=== PATIENT | male | born 1980 | race Caucasian/White ===

== ENCOUNTER 2020-10-22 21:47 | Emergency (ER) | payer OTHER ==
[~2020-10-22] VITALS: Ht 177.8 cm; Wt 72.6 kg
[~2020-10-22 21:47] MED LIST: Permethrin60 GM TOP
[2020-10-22] MEDS ORDERED: SUBOXONE 8 MG-1 EACH SL (21:58)
== END 2020-10-22 22:59 | disposition home or self-care (01) ==
LOC: ER 21:47
DX: T15.02XA Foreign body in cornea, left eye, initial encounter (principal); T15.01XA Foreign body in cornea, right eye, initial encounter; F17.210 Nicotine dependence, cigarettes, uncomplicated; Z79.891 Long term (current) use of opiate analgesic
CPT/HCPCS: 65222; 99283-25; A9270

== ENCOUNTER 2020-12-24 03:17 | Emergency (ER) | payer OTHER ==
[~2020-12-24] VITALS: Ht 177.8 cm; Wt 77.1 kg
[~2020-12-24 03:17] MED LIST changes: +SUBOXONE 8 MG-1 EACH SL
[2020-12-24] MEDS ORDERED: Vibramycin100 MG PO (04:39)
== END 2020-12-24 04:55 | disposition home or self-care (01) ==
LOC: ER 03:17
DX: L03.116 Cellulitis of left lower limb (principal); F17.200 Nicotine dependence, unspecified, uncomplicated
CPT/HCPCS: 99283; A9270

== ENCOUNTER 2023-09-22 07:27 | Emergency (ER) | payer OTHER ==
[~2023-09-22] VITALS: Ht 177.8 cm; Wt 72.6 kg
[~2023-09-22 07:27] MED LIST changes: +CEPH500 PO; +IBUP800 PO; +Robaxin750 MG PO; +SULTRIDS PO; +Vibramycin100 MG PO
[2023-09-22] MEDS ORDERED: Bactrim Ds Tab1 EACH PO (10:28)
[2023-09-22 10:52] VITALS: BP 148/87
== END 2023-09-22 10:52 | disposition home or self-care (01) ==
LOC: ER 07:27
DX: L02.511 Cutaneous abscess of right hand (principal); F17.200 Nicotine dependence, unspecified, uncomplicated
CPT/HCPCS: 26010; 73140; 90471; 90714; 90715; 99283-25; A9270

== ENCOUNTER 2024-11-19 00:02 | Emergency (ER) | payer OTHER ==
[~2024-11-19] VITALS: Ht 177.8 cm; Wt 77.1 kg
[~2024-11-19 00:02] MED LIST changes: +Acetaminophen650 M1 PO; +BACTRIM DS TAB1 EAC1 PO; +Bactrim Ds Tab1 EACH PO; +Clindamycin HC150 MG PO; +IBUP600 PO; +LACT PO; +Norco 10-325 T1 EACH PO; +SENN187 PO
[2024-11-19 00:36] VITALS: BP 131/82
[2024-11-19] MEDS ORDERED: Methadone HCL 10 MG TAB PO ONE (09:40)
== END 2024-11-19 10:21 | disposition home or self-care (01) ==
LOC: ER 00:02
DX: F11.90 Opioid use, unspecified, uncomplicated (principal); Z76.0 Encounter for issue of repeat prescription; F17.200 Nicotine dependence, unspecified, uncomplicated; Z79.899 Other long term (current) drug therapy
CPT/HCPCS: 99281; A9270

== ENCOUNTER 2024-11-20 13:33 | Emergency (ER) | payer OTHER ==
[~2024-11-20] VITALS: Ht 177.8 cm; Wt 74.8 kg
[2024-11-20] MEDS ORDERED: Methadone HCL 10 MG TAB PO ONE (14:20)
[2024-11-20 14:26] VITALS: BP 135/81
== END 2024-11-20 14:29 | disposition home or self-care (01) ==
LOC: ER 13:33
DX: F11.90 Opioid use, unspecified, uncomplicated (principal); Z76.0 Encounter for issue of repeat prescription; F17.200 Nicotine dependence, unspecified, uncomplicated; Z79.899 Other long term (current) drug therapy
CPT/HCPCS: 99281; A9270

== ENCOUNTER 2025-02-14 07:23 | Emergency (ER) | payer OTHER ==
[~2025-02-14] VITALS: Ht 177.8 cm; Wt 79.4 kg
[2025-02-14 08:13] VITALS: BP 128/79
[2025-02-14] MEDS ORDERED: Fluorescein Sod 1MG Opth Strips LEFTEYE ONE (08:15)
[2025-02-14] MEDS ORDERED: Tetracaine HCl/Pf 0.5% Opth Soln 4 ml LEFTEYE ONE (08:15)
[2025-02-14] MEDS ORDERED: POLYTRIM EYE DR10 M1 LEFTEYE (09:33)
== END 2025-02-14 09:36 | disposition home or self-care (01) ==
LOC: ER 07:23
DX: S05.02XA Injury of conjunctiva and corneal abrasion without foreign body, left eye, initial encounter (principal); W18.30XA Fall on same level, unspecified, initial encounter; Z59.89 Other problems related to housing and economic circumstances; F17.200 Nicotine dependence, unspecified, uncomplicated
CPT/HCPCS: 99283; A9270